=== PATIENT | male | born 1945 | race Asian ===

== ENCOUNTER 2018-06-20 15:51 | Inpatient (IN) | payer OTHER ==
[~2018-06-20] VITALS: Ht 170.2 cm; Wt 56.8 kg
--- NOTE | 2018-06-20 16:18 | NUR ---
PT BIB AMBULANCE FOR SOB. COMPLAINT OPERATOR STATES HIS 02 SAT WAS 85 ON 15L NON REBREATHER, BUT UPON ARIVAL TO FACILITY HE WAS AT 98% RA. PTS MAIN COMPLAINT IS OF COUGH AND CONGESTION. PT CAME [facility] WHO CALLED THE AMBULANCE. PT UPON ARRIVAL IS AXO 4 AND IS AT 97% RA.
[2018-06-20 16:32] LABS: BASOPHIL % 0.3 % (0-2); PLATELET COUNT 197 x10^3mcL (130-400); RED CELL DISTRIBUTION WIDTH 12.1 % (11.5-14.5)
[2018-06-20 16:55] LABS: ALKALINE PHOSPHATASE 80 U/L (46-116); ALT/SGPT 20 U/L (16-63); AST/SGOT 18 U/L (15-37); BILIRUBIN TOTAL 0.33 mg/dL (0.20-1.00); CALCIUM 8.8 mg/dL (8.5-10.1); CHLORIDE SERUM 103 mmol/L (98-107); CREATININE SERUM 1.2 mg/dL (0.7-1.3); GLUCOSE SERUM 302 mg/dL (74-106); POTASSIUM SERUM 4.1 mmol/L (3.5-5.1); SODIUM SERUM 140 mmol/L (136-145); TOTAL PROTEIN, SERUM 8.6 g/dL (6.4-8.2)
--- NOTE | 2018-06-20 17:52 | NUR ---
PT REFUSING ASPIRIN, AND IV. PT DOES NOT WANT HIS BLOOD DRAW EITHER. PT DOES NOT WANT TO BE ADMITTED TO THE HOSPITAL AND IS REFUSING FURTHER TREATMENT. PT LYING SEMI FOWLERS IN GURNEY. NAD NOTED AT THIS TIME.
--- NOTE | 2018-06-20 17:53 | NUR ---
DR JAMESON NOTIFIED OF PT'S REFUSALS. PT STATED TO ME DAUGHTER IS ON HER WAY. CALLED DAUGHTER ABUNDIO WEISS WHO STATED SHE IS ON HER WAY, SHE IS APPROX 30 MINS AWAY
[2018-06-20] MEDS ORDERED: GOOD SENSE ASPI81 M3 PO (18:11)
[2018-06-20] MEDS ORDERED: LIPI10 PO ×2 (18:12→19:18)
[2018-06-20] MEDS ORDERED: CLONIDINE HCL0.1 MG PO (18:14)
[2018-06-20] MEDS ORDERED: COLACE100 MG PO (18:14)
[2018-06-20] MEDS ORDERED: FINASTERIDE5 M1 PO ×2 (18:15→18:16)
[2018-06-20] MEDS ORDERED: CRANBERRY450 M1 PO (18:15)
[2018-06-20] MEDS ORDERED: GLUCOTROL10 MG (18:17)
[2018-06-20] MEDS ORDERED: MOM PO (18:18)
[2018-06-20] MEDS ORDERED: OXYBUTYNIN CHLOR5 MG PO ×2 (18:18→19:20)
[2018-06-20] MEDS ORDERED: MULTI-VITAMINS1 TAB PO (18:18)
[2018-06-20] MEDS ORDERED: FLO4 (18:19)
[2018-06-20] MEDS ORDERED: TRADJENTA5 M1 PO (18:20)
[2018-06-20] MEDS ORDERED: VITAMIN-D1000 IU PO (18:21)
--- NOTE | 2018-06-20 18:45 | NUR ---
DAUGHTER ARRIVED AND SPOKE TO PT. PT AGREED TO HAVE IV PLACED. INFORMED DAUGHTER OF PT ADMISSION TO HOSPITAL
--- NOTE | 2018-06-20 18:55 | NUR ---
REPORT RECEVIED FROM AIRAM PATEL.
--- NOTE | 2018-06-20 18:55 | NUR ---
DR JAMESON NOTIFIED THAT DAUGHTER IS AT BEDSIDE REQUESTING FOOD FOR PT. DR JAMESON GAVE OKAY FOR PT TO EAT. DAUGHTER SAID SHE WILL BRING HIM FOOD.
--- NOTE | 2018-06-20 19:01 | NUR ---
REPORT GIVEN TO GARY ALEGRIA
[2018-06-20] MEDS ORDERED: NOR5 PO (19:18)
[2018-06-20] MEDS ORDERED: ZESTRIL20 MG PO (19:18)
[2018-06-20] MEDS ORDERED: METFORMIN HCL850 MG PO (19:18)
[2018-06-20] MEDS ORDERED: JANUVIA100 M1 PO (19:19)
[2018-06-20] MEDS ORDERED: GLUCOTROL10 MG PO (19:19)
[2018-06-20 19:46] LABS: microscopic required? YES; urine erythrocyte NEGATIVE (NEGATIVE)
--- NOTE | 2018-06-20 19:53 | NUR ---
X2 ATTEMPTS WERE MADE TO GIVE REPORT WITH NO ANSWER.
[2018-06-20 19:54] LABS: AMPHETAMINE QUAL UR NONE DETECTED (See below)
[2018-06-20 19:58] LABS: CHOLESTEROL/HDL RATIO 3.9; PHOSPHOROUS 3.4 mg/dL (2.5-4.9)
--- NOTE | 2018-06-20 19:58 | NUR ---
REPORT GIVEN TO AIRAM GOMEZ TO ASSUME CARE OF PT.
[2018-06-20 20:10] LABS: FREE T4 1.21 ng/dL (0.76-1.46); FREE THYROXINE INDEX 3.1 ug/dL (1.4-4.5); T4(THYROXINE) 8.5 ug/dL (4.7-13.3)
--- NOTE | 2018-06-20 20:11 | NUR ---
RECEIV[place] [facility] [place] [facility] [place], CAME IN DUE TO COUGH, SOB AND CONGESTION. AAOX2 (PERSON, PLACE AND BIRTHDATE). ABLE TO FOLLOW COMMANDS. SLURRED SPEECH NOTED, PT HAS HISTORY OF DYSPHAGIA. LEFT FACIAL DROOP. HAND OIL BURNER TECHNICIAN ARE EQUAL BUT WEAK. PUPILS ARE BRISK AND REACTIVE TO LIGHT. NO SOB NOTED, LUNG SOUNDS DIMINISHED ON AUSCULTATION. DENIES CHEST PAIN/PRESSURE, SR W/ DEPRESSED T WAVE. DENIES ABDOMINAL DISCOMFORT. W/ BARNES CATHETER SLOVENIAN 16 DRAINING W/ YELLOW COLORED URINE. W/ BLANCHABLE REDNESS ON THE BUTTOCKS AND SCABS ON LLE. ON AIR MATTRESS. IV SITE ON THE LEFT HAND GAUGE 24 IS PATENT AND INTACT. SIDE RAILS UPX2. CALL LIGHT ON REACH. HOB ELEVATED AT 40 DEG. ENDORSED TO PRIMARY NURSE ISAAC FOR CONTINUITY OF CARE
[2018-06-20 20:28] LABS: T3 TOTAL 0.87 ng/mL
[2018-06-20 20:31] VITALS: BP 121/70
[2018-06-20 20:50] VITALS: BP 121/70
--- NOTE | 2018-06-20 23:08 | NUR ---
LOVENOX 60 MG SQ ADMINISTERED ORDERED
--- NOTE | 2018-06-21 01:32 | NUR ---
DR. NICOLE MADE AWARE OF LATEST TROPONIN LEVEL 0.817.
--- NOTE | 2018-06-21 04:44 | NUR ---
PT SLEPT WELL ALL NIGHT WITH DAUGHTER AT BEDSIDE.BREATHING EASY AND NON-LABORED.NO COUGHING/CONGESTION NOTED.ON RT PROTOCOL.NO ASE NOTED FROM ROCEPHIN IV ATB GIVEN IN ER.EMPTIED BARNES TO ALVERTO COLORED STRONG ODOR URINE.ALL NEEDS MET.WILL CONTINUE TO MONITOR.
[2018-06-21 05:11] VITALS: BP 117/66
[2018-06-21 06:16] LABS: BASOPHIL % 0.4 % (0-2); PLATELET COUNT 171 x10^3mcL (130-400); RED CELL DISTRIBUTION WIDTH 12.4 % (11.5-14.5)
[2018-06-21 06:20] LABS: CALCIUM 8.3 mg/dL (8.5-10.1); CHLORIDE SERUM 107 mmol/L (98-107); GLUCOSE SERUM 181 mg/dL (74-106); MAGNESIUM 1.8 mg/dL (1.8-2.4); PHOSPHOROUS 3.7 mg/dL (2.5-4.9); POTASSIUM SERUM 4.2 mmol/L (3.5-5.1); SODIUM SERUM 142 mmol/L (136-145)
--- NOTE | 2018-06-21 07:19 | NUR ---
RECEIVED PATIENT AWAKE/ALERT TO SELF/PERSON, LT FACIAL DROOP NOTED, NO ACUTE DISTRESS NOTED. APPEAR COMFORTABLE. TELE #26 NOTED, IV TO LH INTACT AND INFUSING WELL. NO REDNESS OR SWELLING NOTED. BARNES INTACT W/ YELLOW URINE NOTED. POC EXPLAINED. DTR REMAIN AT BEDSIDE. CALL LIGHT IN REACH.
[2018-06-21 09:08] VITALS: BP 115/67
--- NOTE | 2018-06-21 09:50 | NUR ---
PATIENT AWAKE/ALERT FOLLOW COMANDS, REPOSITION UPRIGHT IN BED, GAVE PO MEDS CRUSH IN APPLESAUCE, PATIENT SWALLOW W/O DIFFICULTY. INTRODUCE THIN LIQUID SWALLOW W/O COUGHING NOTED. PT - RYAN AT BEDSIDE WORKING WITH PATIENT. FAMILY MEMBERS ASSIST W/ TRANSLATION. CALL LIGHT IN REACH.
--- NOTE | 2018-06-21 10:05 | NUR ---
PATIENT SITTING AT SIDE OF BED WITH PT, DR. ORONA ROUND WITH DR. DE GUZMAN DISCUSS POC WITH GRANDSON/DTR AT BEDSIDE. INFORM DR. DE GUZMAN TROPONIN 0.667 REPORT AT 0[address] PER [address]. DE GUZMAN IS TRENDING DOWN. NO NEW ORDER. [facility].
--- NOTE | 2018-06-21 11:57 | NUR ---
PATIENT ASLEEP AROUSABLE, GAVE 3 UNITS REGULAR INSULIN SQ FOR BS 195, GRANDSON REMAIN AT BEDSIDE. IV INTACT AND INFUSING WELL. TELE MONITOR NSR 75. CONT TO MONITOR.
[2018-06-21 13:14] VITALS: BP 125/66
[2018-06-21] MEDS ORDERED: LEVOFLOXACIN500 M1 PO (13:53)
--- NOTE | 2018-06-21 14:58 | NUR ---
PATIENT RESTING IN BED WITH DTRS AT BEDSIDE, DR. DORSEY SEEN APTIENT AND EXAM, DISCUSS POC AND LAB RESULTS. PLAN D/C HOME TODAY. ORDERS KCL 40MEQ PO X1 AND XANAX 0.5MG PO X1. ORDERS CARRY OUT.
--- NOTE | 2018-06-21 16:15 | NUR ---
INFORM AND PATIENT TRANSPORTATION IS ARRANGE TO OFFICE MACHINE SERVICER APPRENTICE IN 2HRS.
[2018-06-21 16:44] VITALS: BP 143/75
[2018-06-21 16:59] VITALS: BP 143/75
--- NOTE | 2018-06-21 17:15 | NUR ---
CALL TO [facility] GAVE REPORT TO EDVIN ALEGRIA. PATIENT WILL BE HOME HEALTH CNA AT 1750. PATIENT LEAVING WITH CAMERON. BS 160 NO COVERAGE DUE TO PATIENT TRANSFER TO REHAB.
--- NOTE | 2018-06-21 17:54 | NUR ---
REPOSITION PATIENT UP IN BED, ASSISTING WITH DINNER TRAY PATIENT ABLE TO FEED SELF, GAVE PO MEDS CRUSH IN APPLESAUCE. AT BEDSIDE GIVE DISCHARGE INSTRUCTIONS AND ACKNOWLEDGEMENT OF TRANSFER TO AND EXPLAINED WITH DESTINEY ISAACS ASSISTED WITH MANDARIN. VERBALIZE UNDERSTAND. IV REMOVED TO WITH CATHETER INTACT, NO REDNESS OR SWELLING NOTED, GAUZES APPLIED TO SITE. TELE BOX REMOVED AND RETURN TO MONITOR ROOM. POLICY ISSUE CLERK ASSIST CHANGING PATIENT INTO ORANGE GOWN AND PLACE DIAPER PER REQUEST. WAITING FOR [facility].
--- NOTE | 2018-06-21 18:43 | NUR ---
PATIENT RESTING IN BED COMFORTABLE, NO DISTRESS NOTED. AT BEDSIDE. AWAITING FOR TRANSPORTATION. CONT TO MONITOR.
--- NOTE | 2018-06-21 19:00 | NUR ---
PATIENT IS PICK BY [facility]. ACCOMPANIED BY AND ALL BELONGINGS WITH AT THIS TIME.
[2018-06-25 13:29] VITALS: Ht 170.2 cm; Wt 56.8 kg
== END 2018-06-21 19:14 | DRG 689 ==
LOC: ED 15:51 → DU 19:35
PROVIDERS: Emergency Medicine; Family Medicine; ADMIT Internal Medicine
DX: N39.0 Urinary tract infection, site not specified (principal); I21.A1 Myocardial infarction type 2; J96.01 Acute respiratory failure with hypoxia; E11.65 Type 2 diabetes mellitus with hyperglycemia; E02 Subclinical iodine-deficiency hypothyroidism; N40.0 Benign prostatic hyperplasia without lower urinary tract symptoms; I10 Essential (primary) hypertension; R13.10 Dysphagia, unspecified; I69.391 Dysphagia following cerebral infarction; I69.328 Other speech and language deficits following cerebral infarction; Z68.20 Body mass index [BMI] 20.0-20.9, adult; Z79.84 Long term (current) use of oral hypoglycemic drugs
CPT/HCPCS: 82962; 83880; 84439; 87804; J0696; J7030

== ENCOUNTER 2019-05-18 13:59 | Inpatient (IN) | payer OTHER ==
[~2019-05-18] VITALS: Ht 167.6 cm; Wt 48.1 kg
[~2019-05-18 13:59] MED LIST: CLONIDINE HCL0.1 MG PO; COLACE100 MG PO; CRANBERRY450 M1 PO; FINASTERIDE5 M1 PO; FLO4; GLUCOTROL10 MG; GLUCOTROL10 MG PO; GOOD SENSE ASPI81 M3 PO; JANUVIA100 M1 PO; LEVOFLOXACIN500 M1 PO; LIPI10 PO; METFORMIN HCL850 MG PO; MOM PO; MULTI-VITAMINS1 TAB PO; NOR5 PO; OXYBUTYNIN CHLOR5 MG PO; TRADJENTA5 M1 PO; VITAMIN-D1000 IU PO; ZESTRIL20 MG PO
[2019-05-18 14:58] LABS: BASOPHIL % 0 % (0-2); PLATELET COUNT 179 x10^3mcL (130-400); RED CELL DISTRIBUTION WIDTH 13.3 % (11.5-14.5)
[2019-05-18 15:05] LABS: CALCIUM 9.4 mg/dL (8.5-10.1); CARBON DIOXIDE 27.3 mmol/L (21-32); CHLORIDE SERUM 105 mmol/L (98-107); GLUCOSE SERUM 190 mg/dL (74-106); POTASSIUM SERUM 4.3 mmol/L (3.5-5.1); SODIUM SERUM 142 mmol/L (136-145)
[2019-05-18 15:06] LABS: UA SPECIFIC GRAVITY 1.025 (1.005-1.035); microscopic required? YES; urine erythrocyte 3+ (NEGATIVE)
[2019-05-18 15:09] LABS: ALBUMIN 3.5 g/dL (3.4-5.0); ALKALINE PHOSPHATASE 68 U/L (46-116); ALT/SGPT 17 U/L (16-63); AST/SGOT 18 U/L (15-37); BILIRUBIN TOTAL 0.9 mg/dL (0.20-1.00); TOTAL PROTEIN, SERUM 8.1 g/dL (6.4-8.2)
[2019-05-18 18:11] LABS: CHOLESTEROL/HDL RATIO 2.6; MAGNESIUM 1.2 mg/dL (1.8-2.4)
[2019-05-18 18:14] LABS: T3 TOTAL 0.72 ng/mL
[2019-05-18 18:25] LABS: FREE T4 1.35 ng/dL (0.76-1.46); FREE THYROXINE INDEX 3.4 ug/dL (1.4-4.5); T4(THYROXINE) 9.2 ug/dL (4.7-13.3)
[2019-05-18 18:55] VITALS: BP 128/71
[2019-05-18 18:58] VITALS: Ht 167.6 cm; Wt 48.1 kg
[2019-05-18 19:34] LABS: AMPHETAMINE QUAL UR NONE DETECTED (See below)
[2019-05-18 20:30] VITALS: BP 118/68
[2019-05-19 01:11] LABS: BASOPHIL % 0.2 % (0-2); PLATELET COUNT 136 x10^3mcL (130-400); RED CELL DISTRIBUTION WIDTH 13.3 % (11.5-14.5)
[2019-05-19 05:22] VITALS: BP 119/67
[2019-05-19 06:30] LABS: BASOPHIL % 0.3 % (0-2); PLATELET COUNT 140 x10^3mcL (130-400); RED CELL DISTRIBUTION WIDTH 12.9 % (11.5-14.5)
[2019-05-19 06:59] LABS: CALCIUM 9.2 mg/dL (8.5-10.1); CHLORIDE SERUM 106 mmol/L (98-107); CREATININE SERUM 1.2 mg/dL (0.7-1.3); GLUCOSE SERUM 105 mg/dL (74-106); PHOSPHOROUS 4.1 mg/dL (2.5-4.9); POTASSIUM SERUM 3.5 mmol/L (3.5-5.1); SODIUM SERUM 143 mmol/L (136-145)
[2019-05-19 08:34] VITALS: BP 152/65
[2019-05-19 12:12] VITALS: BP 117/68
[2019-05-19 16:29] VITALS: BP 105/61
[2019-05-19 19:27] VITALS: BP 101/56
[2019-05-20 05:54] VITALS: BP 121/64
[2019-05-20 07:05] LABS: BASOPHIL % 0.1 % (0-2); RED CELL DISTRIBUTION WIDTH 12.7 % (11.5-14.5)
[2019-05-20 07:21] LABS: CALCIUM 8.3 mg/dL (8.5-10.1); CARBON DIOXIDE 26.1 mmol/L (21-32); CHLORIDE SERUM 105 mmol/L (98-107); CREATININE SERUM 0.9 mg/dL (0.7-1.3); GLUCOSE SERUM 111 mg/dL (74-106); MAGNESIUM 1.6 mg/dL (1.8-2.4); PHOSPHOROUS 2.9 mg/dL (2.5-4.9); POTASSIUM SERUM 3.6 mmol/L (3.5-5.1); SODIUM SERUM 140 mmol/L (136-145)
[2019-05-20 07:31] LABS: PLATELET COUNT 107 x10^3mcL (130-400)
[2019-05-20 08:20] VITALS: BP 122/68
[2019-05-20 11:58] VITALS: BP 112/63
[2019-05-20 17:02] VITALS: BP 123/64
[2019-05-20 21:00] VITALS: BP 119/66
[2019-05-21 05:32] VITALS: BP 143/71
[2019-05-21 07:00] LABS: CALCIUM 8.2 mg/dL (8.5-10.1); CARBON DIOXIDE 28.3 mmol/L (21-32); CHLORIDE SERUM 105 mmol/L (98-107); CREATININE SERUM 0.7 mg/dL (0.7-1.3); GLUCOSE SERUM 107 mg/dL (74-106); POTASSIUM SERUM 3.5 mmol/L (3.5-5.1); SODIUM SERUM 140 mmol/L (136-145)
[2019-05-21 07:56] LABS: BASOPHIL % 0.3 % (0-2); RED CELL DISTRIBUTION WIDTH 12.9 % (11.5-14.5)
[2019-05-21 08:02] LABS: PLATELET COUNT 118 x10^3mcL (130-400)
[2019-05-21 08:20] VITALS: BP 136/79
[2019-05-21 11:40] VITALS: BP 133/73
[2019-05-21 16:39] VITALS: BP 139/76
[2019-05-21 18:03] VITALS: BP 139/76
[2019-05-21] MEDS ORDERED: MEROPENEM-1 GM/50 ML IV (18:14)
== END 2019-05-21 18:47 | DRG 871 ==
LOC: ED 13:59 → MU 17:07 → DU 17:07 → MU 05-20 11:20
PROVIDERS: Emergency Medicine; ADMIT Internal Medicine
DX: A41.9 Sepsis, unspecified organism (principal); N17.0 Acute kidney failure with tubular necrosis; R53.2 Functional quadriplegia; N39.0 Urinary tract infection, site not specified; N13.8 Other obstructive and reflux uropathy; R64 Cachexia; Z68.1 Body mass index [BMI] 19.9 or less, adult; Z16.12 Extended spectrum beta lactamase (ESBL) resistance; B96.20 Unspecified Escherichia coli [E. coli] as the cause of diseases classified elsewhere; R31.9 Hematuria, unspecified; N40.1 Benign prostatic hyperplasia with lower urinary tract symptoms; E83.42 Hypomagnesemia; E11.9 Type 2 diabetes mellitus without complications; Z99.3 Dependence on wheelchair; Z79.84 Long term (current) use of oral hypoglycemic drugs; Z79.82 Long term (current) use of aspirin; Z22.322 Carrier or suspected carrier of Methicillin resistant Staphylococcus aureus; Z86.73 Personal history of transient ischemic attack (TIA), and cerebral infarction without residual deficits
CPT/HCPCS: 82962; 84439; 97110-GP; 97530-GP; G0378; J0696; J1956; J2185; J3475; J7030; J7060; Q0092